=== PATIENT | male | born 1985 | race Two or more races ===

== ENCOUNTER 2021-04-13 16:31 | Emergency (ER) | payer MEDICAID ==
[~2021-04-13] VITALS: Ht 185.4 cm; Wt 88.0 kg
[2021-04-13 16:41] VITALS: BP 127/70
[2021-04-13] MEDS ORDERED: KETOROLAC 60MG/2ML VIAL IM ONE (19:30)
[2021-04-13] MEDS ORDERED: LORAZEPAM 0.5MG TABLET PO ONE (19:30)
[2021-04-13] MEDS ORDERED: CYCL25PO15 MT (20:42)
== END 2021-04-13 21:41 | disposition home or self-care (01) ==
LOC: ER 16:31
DX: M54.59 Other low back pain (principal)
CPT/HCPCS: 72100; 96372; 99283; J1885

== ENCOUNTER 2021-04-17 15:56 | Emergency (ER) | payer MEDICAID ==
[~2021-04-17] VITALS: Ht 185.4 cm; Wt 87.0 kg
[~2021-04-17 15:56] MED LIST: CYCL25PO15 MT
[2021-04-17] MEDS ORDERED: KETOROLAC 30MG/ML VIAL IM ONE (17:00)
[2021-04-17 17:11] VITALS: BP 106/69
[2021-04-17] MEDS ORDERED: NAP5EC MT (17:11)
== END 2021-04-17 17:46 | disposition home or self-care (01) ==
LOC: ER 15:56
DX: M54.50 Low back pain, unspecified (principal); Z90.49 Acquired absence of other specified parts of digestive tract
CPT/HCPCS: 96372; 99283; J1885